=== PATIENT | male | born 1975 | race Caucasian/White ===

== ENCOUNTER 2019-09-20 18:38 | Emergency (ER) | payer OTHER ==
[~2019-09-20] VITALS: Ht 180.3 cm; Wt 127.0 kg
[2019-09-20 18:48] VITALS: BP 177/108
--- NOTE | 2019-09-20 19:02 | NUR ---
Patient ambulated to bed 11. RN evaluating patient at bedside.
[2019-09-20] MEDS ORDERED: KETOROLAC 60 MG/2 ML VIAL IM ONE (19:05)
--- NOTE | 2019-09-20 19:18 | NUR ---
44 Y/O M PRESENTS TO ED C/O BACK OF THE NECK PAIN AND BELL S/P T/C YESTERDAY. PT ABLE TO TURN HEAD LEFT AND RIGHT WITH NO DIFFICULTY. DENIES LOC, OR HITTING HEAD. AIRWAY INTACT. NO OTHER COMPLAINTS. ABLE TO AMBULATE WITH STEADY GAIT. BED LOCKED AND IN LOWEST POSITION, SIDE RAIL UP X1. WILL CONTINUE TO MONITOR. MHX: GALLBLADDER REMOVAL NKA
[2019-09-20 19:44] VITALS: BP 133/81
--- NOTE | 2019-09-20 19:46 | NUR ---
Patient discharged with v/s stable. Written and verbal after care instructions given and explained. Patient alert, oriented and verbalized understanding of instructions. with steady gait. All questions addressed prior to discharge. ID band removed. Patient advised to follow up with PMD. Rx of given. Patient educated on indication of medication including possible reaction and side effects. Opportunity to ask questions provided and answered.Prescriptio of Naproxen given.
== END 2019-09-20 19:43 | disposition home or self-care (01) ==
LOC: MED 18:38
DX: S16.1XXA Strain of muscle, fascia and tendon at neck level, initial encounter (principal); Z90.49 Acquired absence of other specified parts of digestive tract; Z87.442 Personal history of urinary calculi; V43.62XA Car passenger injured in collision with other type car in traffic accident, initial encounter; Y93.89 Activity, other specified; Y92.89 Other specified places as the place of occurrence of the external cause; Y99.8 Other external cause status
CPT/HCPCS: 96372; 99283; J1885

== ENCOUNTER 2023-07-27 13:41 | Emergency (ER) | payer OTHER ==
[~2023-07-27] VITALS: Ht 180.3 cm; Wt 112.5 kg
[2023-07-27 14:05] VITALS: BP 184/131; PULSE 88; RESP 18; TEMP 98.5; O2SAT 99
[2023-07-27] MEDS: LIDOCAINE MPF 1% 10 MG/ML VIAL INJ ONE (14:53)
[2023-07-27] MEDS ORDERED: IBUP-1842 PO (15:02)
== END 2023-07-27 15:04 | disposition home or self-care (01) ==
LOC: MED 13:41
DX: S01.511A Laceration without foreign body of lip, initial encounter (principal); I10 Essential (primary) hypertension; Z79.899 Other long term (current) drug therapy; W11.XXXA Fall on and from ladder, initial encounter; Y93.89 Activity, other specified; Y92.89 Other specified places as the place of occurrence of the external cause; Y99.8 Other external cause status
CPT/HCPCS: 12011; 90471; 90715; 99283; J2001

== ENCOUNTER 2023-10-19 01:57 | Emergency (ER) | payer OTHER ==
[~2023-10-19] VITALS: Ht 180.3 cm; Wt 99.8 kg
[~2023-10-19 01:57] MED LIST: IBUP-1842 PO
[2023-10-19 02:15] VITALS: BP 188/123; PULSE 98; RESP 18; TEMP 97.4; O2SAT 98
[2023-10-19] MEDS ORDERED: CHLO473S62 PO (02:36)
[2023-10-19] MEDS ORDERED: PENI500T20 PO (02:36)
[2023-10-19 02:44] VITALS: TEMP 97.4
[2023-10-19] MEDS: PENICILLIN V POTASSIUM 250 MG TAB PO ONE (03:05)
[2023-10-19] MEDS: ACETAMINOPHEN EXTRA STRENGTH 500 MG TAB PO ONE (03:07)
[2023-10-19] MEDS: KETOROLAC 30 MG/ML VIAL IM ONE (03:08)
[2023-10-19 03:15] VITALS: BP 154/95; PULSE 81; RESP 16; O2SAT 98
== END 2023-10-19 03:17 | disposition home or self-care (01) ==
LOC: MED 01:57
DX: K04.7 Periapical abscess without sinus (principal); I10 Essential (primary) hypertension; Z79.1 Long term (current) use of non-steroidal anti-inflammatories (NSAID); Z79.899 Other long term (current) drug therapy
CPT/HCPCS: 96372; 99283; J1885